=== PATIENT | male | born 1960 | race Caucasian/White ===

== ENCOUNTER 2022-05-24 12:53 | Day surgery (SDC) | payer OTHER ==
[~2022-05-24] VITALS: Ht 185.4 cm; Wt 128.8 kg
[~2022-05-24 12:53] MED LIST: ACET325 PO; ATOR40TA PO; Aspir-Trin325 MG PO; CLOP75 PO; CYCL10 PO; Flomax0.4 MG PO; HYDACE5 PO; IBUP400 PO; LISI5 PO; METO50ER PO; NAPR500 PO; Percocet 5-3251 EACH PO; Pravachol40 MG PO; RXCYCL10 PO; Zofran Odt4 MG SL
[2022-05-24] MEDS ORDERED: REPATHA SU140 MG/1 M SQ (13:44)
--- NOTE | 2022-05-24 17:33 | NUR ---
05/24/22 1733 MELISSA TURNER LATE ENTRY: DR. ARREAGA CANCELLED 2ND DOSE OF TXA.
== END 2022-05-24 17:20 | disposition home or self-care (01) ==
LOC: ORSCSDS 12:53
PROVIDERS: Podiatrist Foot & Ankle Surgery
PROC: 0SGF04Z Fusion of Right Ankle Joint with Internal Fixation Device, Open Approach (ICD-10-PCS; principal; 2022-05-24 14:30)
DX: M19.071 Primary osteoarthritis, right ankle and foot (principal); M19.171 Post-traumatic osteoarthritis, right ankle and foot; M77.51 Other enthesopathy of right foot and ankle; R60.0 Localized edema; S86.391D Other injury of muscle(s) and tendon(s) of peroneal muscle group at lower leg level, right leg, subsequent encounter; I10 Essential (primary) hypertension; I25.2 Old myocardial infarction; E78.00 Pure hypercholesterolemia, unspecified; Z79.02 Long term (current) use of antithrombotics/antiplatelets; Z79.899 Other long term (current) drug therapy; Z79.82 Long term (current) use of aspirin
CPT/HCPCS: C1713; C1734; J0171; J0690; J0735; J1100; J1885; J2250; J2405; J2704; J2795; J3010